=== PATIENT | male | born 1985 | race Caucasian/White ===

== ENCOUNTER 2023-07-06 15:26 | Emergency (ER) | payer SELFPAY ==
[2023-07-06 16:12] VITALS: BP 131/84; PULSE 88; RESP 18; TEMP 97.9; BMI 28.7
[2023-07-06 17:28] LABS: URIC ACID CRYSTALS FEW /hpf (NONE SEEN)
[2023-07-06] MEDS ORDERED: SULFAMETHOXAZOLE/TRIMETHOPRIM 800MG/160MG D.S. TABLET PO ONE (17:29)
[2023-07-06] MEDS ORDERED: SULFAMETHOXAZOLE/TRIMETHOPRIM 800MG/160MG D.S. TABLET ONE (17:49)
== END 2023-07-06 17:58 | disposition home or self-care (01) ==
LOC: FER 15:26
DX: R30.0 Dysuria (principal); N39.0 Urinary tract infection, site not specified
CPT/HCPCS: 81003; 81015; 87086; 99283-25